=== PATIENT | male | born 2005 | race Two or more races ===

== ENCOUNTER 2023-10-04 00:53 | Emergency (ER) | payer OTHER ==
[~2023-10-04] VITALS: Ht 175.3 cm; Wt 78.0 kg
[2023-10-04] MEDS ORDERED: 0.9%NACL 1000ML 1,000 ML IV ONE ×2 (03:00)
[2023-10-04] MEDS ORDERED: MORPHINE 2 MG SYG IVP ONE (03:00)
[2023-10-04 04:47] VITALS: BP 132/60; PULSE 78; RESP 14; O2SAT 97
== END 2023-10-04 05:05 | disposition short-term general hospital (02) ==
LOC: EDH 00:53
DX: S02.609A Fracture of mandible, unspecified, initial encounter for closed fracture (principal); J45.909 Unspecified asthma, uncomplicated; Y08.89XA Assault by other specified means, initial encounter; Y93.89 Activity, other specified; Y92.89 Other specified places as the place of occurrence of the external cause; Y99.8 Other external cause status
CPT/HCPCS: 99285; 70450; 96374; 96361; 72125; 70486; J2270; J7030 ×2